=== PATIENT | male | born 1970 | race Caucasian/White ===

== ENCOUNTER 2017-02-18 18:55 | Emergency (ER) | payer SELFPAY ==
[~2017-02-18] VITALS: Ht 170.2 cm; Wt 80.4 kg
[2017-02-18] MEDS ORDERED: MORPHINE SULFATE 4 MG/ML, 1ML ONE ×2 (19:23→20:44)
[2017-02-18] MEDS ORDERED: ONDANSETRON 2MG/ML, 2ML ONE (19:23)
[2017-02-18] MEDS ORDERED: SODIUM CHLORIDE 0.9% 1,000ML IVBOLUS ONE (19:30)
[2017-02-18] MEDS ORDERED: ONDANSETRON 2MG/ML, 2ML IVPush ONE (19:30)
[2017-02-18] MEDS: MORPHINE SULFATE 4 MG/ML, 1ML IVPush PRN ×2 (19:32→20:48)
[2017-02-18 19:46] LABS: ASPARTATE AMINO TRANSFERASE 23 U/L (15-37); BLOOD UREA NITROGEN 16 mg/dL (7-18)
[2017-02-18 20:07] LABS: PATH.CAST-FLAG NOT PRESENT; SPERM-FLAG NOT PRESENT; SRC-FLAG NOT PRESENT; XTAL-FLAG NOT PRESENT; YLC-FLAG NOT PRESENT
[2017-02-18] MEDS ORDERED: OMNIPAQUE 350 MG/ML, 100ML BOTTLE ONE (20:49)
[2017-02-18] MEDS ORDERED: KETOROLAC 30 MG/1 ML ONE (21:08)
[2017-02-18] MEDS ORDERED: CEFTRIAXONE PMX 1GM/50ML 50 ML ONE (21:08)
[2017-02-18 21:16] VITALS: BP 163/94
[2017-02-18] MEDS ORDERED: CEFTRIAXONE PMX 1GM/50ML 50 ML IV ONE (21:30)
[2017-02-18] MEDS ORDERED: KETOROLAC 30 MG/1 ML IVPush ONE (21:30)
== END 2017-02-18 21:59 | disposition home or self-care (01) ==
LOC: ED 19:27
DX: N13.2 Hydronephrosis with renal and ureteral calculous obstruction (principal)
CPT/HCPCS: 36415; 74177; 80053; 81001; 85025; 93005; 96361; 96365; 96375; 96376; 99285; J0696; J1885; J2405; J7030; Q9967

== ENCOUNTER 2017-02-22 10:41 | Emergency (ER) | payer SELFPAY ==
[~2017-02-22] VITALS: Ht 170.2 cm; Wt 80.8 kg
[2017-02-22 10:53] VITALS: BP 170/114
[2017-02-22] MEDS ORDERED: ONDANSETRON 2MG/ML, 2ML IVPush ONE (11:30)
[2017-02-22] MEDS ORDERED: HYDROmorphone 1 MG/ML, 1ML IVPush PRN (11:30)
[2017-02-22] MEDS ORDERED: SODIUM CHLORIDE FLUSH 10ML SYR IVF ONE (11:30)
[2017-02-22 12:03] LABS: BLOOD UREA NITROGEN 13 mg/dL (7-18)
[2017-02-22] MEDS ORDERED: HYDROmorphone 1 MG/ML, 1ML ONE (12:03)
[2017-02-22] MEDS ORDERED: ONDANSETRON 2MG/ML, 2ML ONE (12:03)
== END 2017-02-22 13:24 | disposition home or self-care (01) ==
LOC: ED 13:18
DX: N23 Unspecified renal colic (principal)
CPT/HCPCS: 36415; 74000; 76770; 80048; 81003; 82040; 85025; 93005; 96374; 96375; J1170; J2405

== ENCOUNTER 2017-02-24 00:20 | Inpatient (IN) | payer SELFPAY ==
[~2017-02-24] VITALS: Ht 170.2 cm; Wt 81.4 kg
[2017-02-24] MEDS ORDERED: SODIUM CHLORIDE 0.9% 1,000ML IV ONE (01:00)
[2017-02-24] MEDS ORDERED: SODIUM CHLORIDE FLUSH 10ML SYR IVF ONE (01:00)
[2017-02-24] MEDS ORDERED: HYDROmorphone 1 MG/ML, 1ML IVPush PRN (01:00)
[2017-02-24] MEDS ORDERED: KETOROLAC 30 MG/1 ML IVPush ONE (01:00)
[2017-02-24] MEDS ORDERED: ONDANSETRON 2MG/ML, 2ML IVPush ONE (01:00)
[2017-02-24] MEDS ORDERED: ONDANSETRON 2MG/ML, 2ML ONE ×2 (01:06→07:24)
[2017-02-24] MEDS ORDERED: KETOROLAC 30 MG/1 ML ONE (01:06)
[2017-02-24] MEDS ORDERED: HYDROmorphone 1 MG/ML, 1ML ONE (01:06)
[2017-02-24 01:11] LABS: ASPARTATE AMINO TRANSFERASE 28 U/L (15-37); BLOOD UREA NITROGEN 25 mg/dL (7-18)
[2017-02-24 01:16] LABS: PATH.CAST-FLAG NOT PRESENT; SPERM-FLAG NOT PRESENT; SRC-FLAG NOT PRESENT; XTAL-FLAG NOT PRESENT; YLC-FLAG NOT PRESENT
[2017-02-24] MEDS ORDERED: DOCUSATE 100 MG CAPSULE PO PRN (04:00)
[2017-02-24] MEDS ORDERED: POLYETHYLENE GLYCOL 17 GM PACKET PO PRN (04:00)
[2017-02-24] MEDS ORDERED: BISACODYL 10 MG SUPP PR PRN (04:00)
[2017-02-24] MEDS ORDERED: morphine SULFATE 10 MG/ML, 1ML IVPush PRN (04:00)
[2017-02-24] MEDS ORDERED: ACETAMINOPHEN 325 MG TABLET PO PRN ×2 (04:00→13:00)
[2017-02-24] MEDS ORDERED: ONDANSETRON 2MG/ML, 2ML IVPush PRN ×2 (04:00→13:00)
[2017-02-24] MEDS ORDERED: PROMETHAZINE 25 MG/ML, 1ML IM PRN (04:00)
[2017-02-24] MEDS ORDERED: KETOROLAC 30 MG/1 ML IVPush PRN (04:00)
[2017-02-24] MEDS ORDERED: ZOLPIDEM 5MG TABLET PO PRN (04:00)
[2017-02-24 04:22] VITALS: BP 146/82
[2017-02-24] MEDS: POTASSIUM CHLORIDE 20 MEQ in LACTATED RINGERS 1,000 ML IV SCH ×2 (04:34→20:08)
[2017-02-24] MEDS: CEFTRIAXONE PMX 1GM/50ML 50 ML IV SCH (04:34)
[2017-02-24 06:28] VITALS: BP 176/106
[2017-02-24 06:37] VITALS: BP 147/88
[2017-02-24] MEDS ORDERED: DEXAMETHASONE 4 MG/ML, 1ML ONE (07:24)
[2017-02-24] MEDS ORDERED: PROPOFOL 10 MG/ML, 20ML ONE (07:24)
[2017-02-24] MEDS: TAMSULOSIN 0.4 MG CAP.ER.24H PO SCH (09:00)
[2017-02-24] MEDS ORDERED: FENTANYL 25 MCG PATCH TD SCH (11:00)
[2017-02-24] MEDS ORDERED: HYDROmorphone 1 MG/ML, 1ML IV PRN ×2 (11:00→13:00)
[2017-02-24] MEDS ORDERED: PROMETHAZINE 25 MG/ML, 1ML IV PRN (13:00)
[2017-02-24] MEDS ORDERED: LABETALOL 5MG/ML, 20ML IV PRN (13:00)
[2017-02-24] MEDS ORDERED: hydrALAzine 20 MG/ML, 1ML IV PRN (13:00)
[2017-02-24] MEDS ORDERED: MEPERIDINE/PF 25MG/0.5ML IVPush PRN (13:00)
[2017-02-24] MEDS ORDERED: MIDAZOLAM 1 MG/ML, 2ML IV PRN (13:00)
[2017-02-24] MEDS ORDERED: HYDROcodone/APAP 7.5-325MG/15ML UDC PO PRN (13:00)
[2017-02-24] MEDS ORDERED: EPHEDRINE 50 MG/ML, 1ML IVPush PRN (13:00)
[2017-02-24] MEDS ORDERED: FENTANYL PF 100 MCG/2ML IV PRN (13:00)
[2017-02-24] MEDS ORDERED: OXYcodone 5 MG/5 ML ORAL.SOL UDC PO PRN (13:00)
[2017-02-24] MEDS ORDERED: FENTANYL PF 100 MCG/2ML ONE (13:16)
[2017-02-24] MEDS ORDERED: OXYcodone 5 MG/5 ML ORAL.SOL UDC ONE (13:16)
[2017-02-24] MEDS ORDERED: VISIPAQUE 270 MG/ML, 50ML BOTTLE ONE (13:48)
[2017-02-24 14:05] VITALS: BP 122/80
[2017-02-24 18:50] VITALS: BP 133/65
[2017-02-24] MEDS: OXYcodone IR 5MG TABLET PO PRN (20:08)
[2017-02-25] VITALS: BP 126/72
[2017-02-25 03:00] VITALS: BP 135/72
[2017-02-25] MEDS: CEFTRIAXONE PMX 1GM/50ML 50 ML IV SCH (03:00)
[2017-02-25] MEDS: OXYcodone IR 5MG TABLET PO PRN ×4 (03:00→21:45)
[2017-02-25 04:38] LABS: BLOOD UREA NITROGEN 10 mg/dL (7-18)
[2017-02-25 07:05] VITALS: BP 135/77
[2017-02-25] MEDS: TAMSULOSIN 0.4 MG CAP.ER.24H PO SCH (08:38)
[2017-02-25 13:33] VITALS: BP 128/79
[2017-02-25] MEDS ORDERED: hydrALAzine 20 MG/ML, 1ML IV PRN ×2 (16:00)
[2017-02-25] MEDS ORDERED: PROMETHAZINE 25 MG/ML, 1ML IM PRN ×2 (16:00)
[2017-02-25] MEDS ORDERED: POLYETHYLENE GLYCOL 17 GM PACKET PO PRN ×2 (16:00)
[2017-02-25] MEDS ORDERED: ZOLPIDEM 5MG TABLET PO PRN ×2 (16:00)
[2017-02-25] MEDS ORDERED: FENTANYL PF 100 MCG/2ML IV PRN ×2 (16:00)
[2017-02-25] MEDS ORDERED: DOCUSATE 100 MG CAPSULE PO PRN ×2 (16:00)
[2017-02-25] MEDS ORDERED: BISACODYL 10 MG SUPP PR PRN ×2 (16:00)
[2017-02-25] MEDS ORDERED: LABETALOL 5MG/ML, 20ML IV PRN ×2 (16:00)
[2017-02-25] MEDS ORDERED: HYDROmorphone 1 MG/ML, 1ML IV PRN ×4 (16:00)
[2017-02-25] MEDS ORDERED: ONDANSETRON 2MG/ML, 2ML IVPush PRN ×4 (16:00)
[2017-02-25] MEDS ORDERED: ACETAMINOPHEN 325 MG TABLET PO PRN ×4 (16:00)
[2017-02-25] MEDS ORDERED: morphine SULFATE 10 MG/ML, 1ML IVPush PRN (16:00)
[2017-02-25] MEDS ORDERED: EPHEDRINE 50 MG/ML, 1ML IVPush PRN ×2 (16:00)
[2017-02-25] MEDS ORDERED: PROMETHAZINE 25 MG/ML, 1ML IV PRN ×2 (16:00)
[2017-02-25] MEDS ORDERED: MEPERIDINE/PF 25MG/0.5ML IVPush PRN ×2 (16:00)
[2017-02-25] MEDS ORDERED: OXYcodone 5 MG/5 ML ORAL.SOL UDC PO PRN ×2 (16:00)
[2017-02-25] MEDS ORDERED: HYDROcodone/APAP 7.5-325MG/15ML UDC PO PRN ×2 (16:00)
[2017-02-25 20:42] VITALS: BP 142/83
[2017-02-26 03:30] VITALS: BP 135/80
[2017-02-26] MEDS: OXYcodone IR 5MG TABLET PO PRN (04:21)
[2017-02-26 06:16] LABS: BLOOD UREA NITROGEN 10 mg/dL (7-18)
[2017-02-26 08:04] VITALS: BP 124/84
[2017-02-26] MEDS: TAMSULOSIN 0.4 MG CAP.ER.24H PO SCH (08:32)
[2017-02-26] MEDS ORDERED: OXYC5TAB3 PO (09:15)
[2017-02-26] MEDS ORDERED: TAMS-11 PO (09:15)
== END 2017-02-26 11:30 | disposition home or self-care (01) | DRG 670 ==
LOC: ED 00:35 → EDIP 03:13 → 3NW 03:52
PROC: 0T768DZ Dilation of Right Ureter with Intraluminal Device, Via Natural or Artificial Opening Endoscopic (ICD-10-PCS; 2017-02-24)
PROC: 0TC68ZZ Extirpation of Matter from Right Ureter, Via Natural or Artificial Opening Endoscopic (ICD-10-PCS; principal; 2017-02-24 13:00)
DX: N20.1 Calculus of ureter (principal); D72.829 Elevated white blood cell count, unspecified; R31.9 Hematuria, unspecified; N50.819 Testicular pain, unspecified; Z87.442 Personal history of urinary calculi
CPT/HCPCS: 36415; 74000; 74420; 76770; 80048; 80053; 81001; 82360; 85025; 88300; 96361; 96374; 96375; J0696; J1100; J1170; J1885; J2405; J2704; J3010; J3480; Q9966; C1769; C2617; J2270; J7030; J7120